=== PATIENT | female | born 1975 | race Two or more races ===

== ENCOUNTER 2022-04-02 11:10 | Emergency (ER) | payer SELFPAY ==
[~2022-04-02] VITALS: Ht 160 cm; Wt 57.0 kg
[2022-04-02] MEDS ORDERED: METOCLOPRAMIDE HCL 10MG/2ML VIAL IV ONE (12:00)
[2022-04-02] MEDS ORDERED: ACETAMINOPHEN 325MG TABLET PO ONE (12:00)
[2022-04-02] MEDS ORDERED: DIPHENHYDRAMINE 50MG/ML VIAL IV ONE (12:00)
[2022-04-02 12:17] LABS: BASOPHILS % 1.1 % (0.0-2.0); EOSINOPHILS % 0.7 % (0.0-5.0); HEMATOCRIT. 39.8 % (36.0-48.0); HEMOGLOBIN. 13.7 g/dL (12.0-16.0); LYMPHOCYTES % 9.2 % (20.0-50.0); MEAN CORPUSCULAR HEMOGLOBIN 32.1 pg (28.0-32.0); MEAN CORPUSCULAR VOLUME 92.9 fL (81.0-99.0); MEAN PLATELET VOLUME 8.7 fl (7.4-10.4); MONOCYTES % 5.8 % (2.0-8.0); NEUTROPHILS % 83.2 % (40.0-76.0); PLATELET 284 x1000/uL (130-400); RED BLOOD CELL COUNT 4.29 mill/uL (4.2-5.4); RED CELL DISTRIBUTION WIDTH 12.8 % (11.6-14.6)
[2022-04-02 12:38] LABS: CHLORIDE 114 mEq/L (98-107)
[2022-04-02 12:47] LABS: ETHANOL BLOOD < 10 mg/dL
[2022-04-02] MEDS ORDERED: POTASSIUM CHLORIDE 20MEQ TABLET SR PO ONE (13:30)
[2022-04-02 13:32] LABS: HCG SCREEN NEGATIVE
[2022-04-02] MEDS ORDERED: IOHEXOL-350 100 ML BOTTLE ONE (14:17)
[2022-04-02] MEDS ORDERED: ACET-2708 MT (15:15)
[2022-04-02] MEDS ORDERED: POTA-204 MT (15:15)
[2022-04-02] MEDS ORDERED: METO-293 MT (15:15)
[2022-04-02 15:40] VITALS: BP 118/71
[2022-04-02 15:55] LABS: *AMPHETAMINES SCREEN URINE NEGATIVE (NEGATIVE); *BARBITURATES SCREEN URINE NEGATIVE (NEGATIVE); *BENZODIAZEPINES SCREEN URINE NEGATIVE (NEGATIVE); *COCAINE SCREEN URINE NEGATIVE (NEGATIVE); CANNABINOID URINE SCREEN NEGATIVE (NEGATIVE); METHADONE URINE SCREEN NEGATIVE (NEGATIVE); OPIATES URINE SCREEN NEGATIVE (NEGATIVE); PHENCYCLIDINE URINE SCREEN NEGATIVE (NEGATIVE)
== END 2022-04-02 15:51 | disposition home or self-care (01) ==
LOC: ER 11:10
DX: G43.909 Migraine, unspecified, not intractable, without status migrainosus (principal); F41.9 Anxiety disorder, unspecified
CPT/HCPCS: 36415; 70450; 70496; 70498; 71045; 80053; 80305; 80320; 83880; 84484; 84703; 85025; 93005; 99285; J1200; J2765; Q9967; G0480